=== PATIENT | female | born 1945 ===

== ENCOUNTER 2018-06-02 08:13 | Day surgery (SDC) | payer OTHER ==
[2018-06-02] MEDS ORDERED: ceFAZolin 2 GM/DEXTROSE 100 ML IV ONE (08:42)
[2018-06-02] MEDS ORDERED: THROMBIN (BOVINE) 20,000 UNIT SPRAY TP ONE (09:00)
[2018-06-02] MEDS ORDERED: THROMBIN (BOVINE) 5,000 UNIT VIAL TP ONE (09:00)
[2018-06-02] MEDS ORDERED: BUPIVACAINE 0.5% 30 ML SDV ONE (09:00)
[2018-06-02] MEDS ORDERED: PROTAMINE SULFATE 50 MG/5 ML VIAL IVP ONE (09:00)
[2018-06-02] MEDS ORDERED: PAPAVERINE HCL 60 MG/2 ML SDV ONE (09:01)
--- NOTE | 2018-06-02 09:26 | PDHPUP ---
History & Physical Update H&P update statement: This history and physical update is based on an assessment of the patient which was completed after admission or registration (within 24 hours), but prior to the surgery/procedure. H&P update: H&P reviewed & patient examined, no change in patient's condition since H&P completed
[2018-06-02] MEDS ORDERED: LIDOCAINE 2% 5 ML SDV ONE (09:33)
[2018-06-02] MEDS ORDERED: ONDANSETRON 4 MG/2 ML VIAL ONE (09:34)
[2018-06-02] MEDS ORDERED: NS 500 ML IV ONE (09:34)
[2018-06-02] MEDS ORDERED: DEXAMETHASONE 4 MG/ML VIAL ONE (09:34)
[2018-06-02] MEDS ORDERED: PROPOFOL 200 MG/20 ML VIAL ONE (09:35)
[2018-06-02] MEDS ORDERED: fentaNYL 100 MCG/2 ML INJ ONE (09:35)
--- NOTE | 2018-06-02 09:38 | PDANEPAE ---
ANE History of Present Illness av fistula ANE Past Medical History - Cardiovascular History Hx Hypertension: Yes Hx Arrhythmias: No Hx Chest Pain: No Hx Coronary Artery / Peripheral Vascular Disease: No Hx CHF / Valvular Disease: Yes Hx Palpitations: No Cardiovascular History Comment: HYPERLIPIDEMIA. AORTIC ANEURYSM - Pulmonary History Hx COPD: No Hx Asthma/Reactive Airway Disease: No Hx Recent Upper Respiratory Infection: No Hx Oxygen in Use at Home: No Hx Sleep Apnea: No Sleep Apnea Screening Result - Last Documented: Negative - Neurologic History Hx Cerebrovascular Accident: No Hx Seizures: No Hx Dementia: No - Endocrine History Hx Diabetes: Yes Hypothyroid: No Hyperthyroid: No Obesity: no Endocrine History Comment: DM - RECENTLY IN HOSP AT [facility] A MONTH AGO FOR ELEVATED GLUCOSE AND DIABETES OUT OF CONTROL - Renal History Hx Renal Disorders: Yes Renal History Comment: KIDNEY DISEASE - ON DIALYSIS. LAST TX 06/01/18 - Liver History Hx Hepatic Disorders: No - Neurological & Psychiatric Hx Hx Neurological and Psychiatric Disorders: No - Cancer History Hx Cancer: No - Congenital Disorder History Hx Congenital Disorders: No - GI History GERD: no Hx Gastrointestinal Disorders: No - Other Health History Other Health History: ANEMIA - Chronic Pain History Chronic Pain: Yes (HIP PAIN L HAD PREVIUOS FX) - Surgical History Prior Surgeries: COLONOSCOPY. HYSTERECTOMY. DIALYSIS CATH R SHOULDER IMPLANTED ONE MONTH AGO ANE Review of Systems Review of Systems: - Exercise capacity Exercise capacity: <4 METS METS (RN): 3 METS ANE Patient History - Allergies Allergies/Adverse Reactions: "antibiotics" Allergy (Uncoded 06/02/18 08:43) Unknown - Home Medications Home medications: home medication list seen and reviewed Home Medications: Levemir 06/01/18 [Last Taken 06/01/18] Lisinopril 06/01/18 [Last Taken Unknown] Simvastatin 06/01/18 [Last Taken Unknown] Carvedilol 12.5 mg PO BID 06/02/18 [Last Taken 06/01/18] amLODIPine BESYLATE [Amlodipine Besylate] 5 mg PO DAILY 06/02/18 [Last Taken ] - NPO status NPO Status: no food or drink >8 hours NPO Since - Liquids (Date): 06/01/18 NPO Since - Liquids (Time): 20:00 NPO Since - Solids (Date): 06/01/18 NPO Since - Solids (Time): 19:00 - Anes Hx Anes Hx: no prior problems - Smoking Hx Smoking Status: Never smoked - Family Anes Hx Family Hx Anesthesia Complications: NEG ANE Labs/Vital Signs - Labs Result Diagrams: 06/02/18 08:42 06/02/18 08:42 - Vital Signs Blood Pressure: 201/91 Heart Rate: 67 Respiratory Rate: 16 Height: 167.64 cm Weight: 70.307 kg ANE Physical Exam - Airway Mallampati Score: Class 2 Mouth exam: dentures - Pulmonary Pulmonary: no respiratory distress - Cardiovascular Cardiovascular: regular rate and rhythym - ASA Status ASA Status: III ANE Anesthesia Plan Anesthesia Plan: GA w LMA
[2018-06-02] MEDS ORDERED: HEPARIN 10,000 UNIT/10 ML MDV (1,000 UNIT/ML) ONE (09:39)
[2018-06-02] MEDS ORDERED: VANCOMYCIN HCL/NORMAL SALINE 250 ML IV ONE (10:00)
[2018-06-02] MEDS ORDERED: ALBUTEROL 3 ML DEYVIAL IH PRN (10:56)
[2018-06-02] MEDS ORDERED: ENALAPRILAT DIHYDRATE 1.25 MG/ML VIAL IVP PRN (10:56)
[2018-06-02] MEDS ORDERED: NALOXONE HCL 0.4 MG/ML INJ IVP PRN (10:56)
[2018-06-02] MEDS ORDERED: ONDANSETRON 4 MG/2 ML VIAL IVP PRN (10:56)
[2018-06-02] MEDS ORDERED: fentaNYL 100 MCG/2 ML INJ IVP PRN (10:56)
[2018-06-02] MEDS ORDERED: ePHEDrine SULFATE 25 MG/5 ML SYR ONE (10:58)
--- NOTE | 2018-06-02 11:16 | POSTANESTH ---
Post Anesthetic Evaluation Cardiovascular Status: Normal, Stable Respiratory Status: Normal, Stable Level of Consciousness/Mental Status: Can Participate in Eval Pain Control: Adequate, Prn Tx Ordered Nausea/Vomiting Control: Adequate, Prn Tx Ordered Complications Possibly Related to Anesthesia: None Noted
--- NOTE | 2018-06-02 11:49 | POSTOPPROG ---
Post Op Note Date of Operation: 06/02/18 Surgeon: Curtis Coelho Data Transcriber: Alyssa Anesthesiologist: Anthony Anesthesia: GET(General Endotracheal) Pre-op Diagnosis: ESRD Post-op Diagnosis: same Indication: same, need for dialysis Procedure: Brachiobasilic AVF creation Findings: Excellent thrill Inf/Abcess present in the surg proc area at time of surgery?: No Depth: Deep Incisional (Fascial) EBL: Minimal
[2018-06-02] MEDS ORDERED: ENALAPRILAT DIHYDRATE 1.25 MG/ML VIAL ONE (12:27)
[2018-06-02 13:02] VITALS: BP 189/78
--- NOTE | 2018-06-04 11:43 | GOP ---
DATE OF OPERATION: 06/02/2018 SURGEON: Curtis Coelho MD CREDIT FRONT OFFICE DEVELOPER: Archana Shah NP PREOPERATIVE DIAGNOSIS: Chronic renal failure. POSTOPERATIVE DIAGNOSIS: Chronic renal failure. PROCEDURE PERFORMED: Right brachiocephalic AV fistula and ultrasound vein mapping. FINDINGS: The patient was found to have a good cephalic vein in the upper arm. ESTIMATED BLOOD LOSS: Negligible. DESCRIPTION OF PROCEDURE: The patient was taken to the operating room where she received satisfactor y endotracheal anesthesia, placed in supine position, prepped and draped in the usual sterile fashion . The arm was mapped with ultrasound and the cephalic vein was selected. A curvilinear incision was made in the antecubital space. Dissection extended down through the biceps aponeurosis and the brac hial artery was dissected free and controlled with vessel loops. The cephalic vein was mobilized ove r to the brachial artery. It was ligated distally and then an end-to-side anastomosis was done with a 6-0 Prolene suture. After the patient had been systemically heparinized, flow was first establishe d through the fistula, then back down the hand. The suture line was hemostatic. Good flow in the fi stula and good preservation of flow to the hand. The wound was infiltrated with 0.50% Marcaine, some topical thrombin was placed in the wound and the wound was then closed with 0 Vicryl for the subcuta neous tissue and 4-0 Monocryl subcuticular stitch for the skin. She tolerated the procedure well, no complications. /[id number]/MODL
== END 2018-06-02 13:06 | disposition home or self-care (01) ==
LOC: FSGY 08:13 → EDSTATUS 09:30 → FSGY 13:06
PROVIDERS: ATTEND Surgery
PROC: 05H933Z Insertion of Infusion Device into Right Brachial Vein, Percutaneous Approach (ICD-10-PCS; principal; 2018-06-02 09:30)
DX: N19 Unspecified kidney failure (principal)
CPT/HCPCS: 36558; J1100; J1644; J2405; J2704; J2720; J3010; J3370; J2440